=== PATIENT | male | born 1965 | race Caucasian/White ===

== ENCOUNTER 2022-02-04 19:22 | Emergency (ER) | payer OTHER, SELFPAY ==
[2022-02-04 19:32] VITALS: BP 126/84; PULSE 83; RESP 12; TEMP 36.7; O2SAT 94; BMI 28.6
--- NOTE | 2022-02-04 19:51 | TELERAD_ITS ---
Patient: LIZZ TERRELL Facility:?[facility] Patient ID:?[id number] Site Patient ID:?[id number]. Site :?[id number] Study:?XRay-Extremity Right HUMERUS-02/04/2022 8:35:57 PM Ordering Physician:Terry Elizondo Final Report: Indication: Fall, pain Technique: Right humerus three views Comparison: None. Findings: No acute fracture. Joint alignment is maintained. Soft tissues are unremarkable. Impression: No acute humeral fracture. Dictated by Goyo Mcmullen MD @ 02/04/2022 9:12:44 PM Signed by:?Goyo Mcmullen MD @02/04/2022 9:12:44 PM (Electronic Signature)
--- NOTE | 2022-02-04 19:51 | XR_ITS ---
Patient: LIZZ TERRELL Facility:?[facility] Patient ID:?[id number] Site Patient ID:?[id number]. Site :?[id number] Study:?XRay-Shoulder Right -02/04/2022 8:35:32 PM Ordering Physician:Terry Elizondo Final Report: Indication: Fall, pain Technique: Right shoulder three views Comparison: None. Findings: No acute fractures or malalignment. Glenohumeral and AC joint spaces are maintained. Partially visualized right lung is clear. Impression: No acute osseous abnormalities. Dictated by Goyo Mcmullen MD @ 02/04/2022 9:11:37 PM Signed by:?Goyo Mcmullen MD @02/04/2022 9:11:37 PM (Electronic Signature)
--- NOTE | 2022-02-04 20:21 | ED.GENADULT ---
HPI - General Adult General Chief complaint: Shoulder Injury/Pain Stated complaint: Fell down stairs, hurt right arm Time Seen by Provider: 02/04/22 19:46 History of Present Illness HPI narrative: Generally healthy 56-year-old male coming in today complaining of shoulder pain. He states that he slipped down the stairs with wet socks falling on his right arm and shoulder. Pain is located at the shoulder and the proximal upper arm. He did not hit head his head or lose consciousness. He denies any other injury. States that it hurts to move the arm. Related Data Home Medications Medication Instructions Recorded Confirmed No Known Home Medications 02/04/22 02/04/22 Allergies Allergy/AdvReac Type Severity Reaction Status Date / Time No Known Drug Allergies Allergy Verified 02/04/22 19:37 Review of Systems Narrative: Denies any other injury. PFSH PFS Social History Smoking Status: Never smoker How often do you have a drink containing alcohol: 4 or more times a week AUDIT-C Alcohol total score: 4 Non-prescribed substance use: denies use Exam Narrative: Exam Narrative: Well-nourished well-developed patient in no acute distress. Alert and oriented. Answers questions appropriately. Mood and affect are appropriate. Thoughts are goal oriented and rational. No tangential or magical thinking noted. Patient speaks in full sentences without needing to catch their breath. HEENT: Normocephalic atraumatic. Pupils are equally round reactive to light. Extraocular muscles are intact. Conjunctivae are moist without any icterus noted. Extremities: Patient has tenderness to palpation over the deltoid of the right shoulder. Can passively move the shoulder however causes him significant pain. He has normal radial pulse. No tenderness to palpation of the distal upper arm, elbow, wrist or hand. Hand facilities flight check pilot is normal and symmetric. The arm is vascularly intact. Normal shoulder contour. Skin: Well perfused without any obvious rashes. Const: Vital Signs, click to edit/add: Vital Signs - 24 hr 02/04/22 19:32 Temperature 98.0 F Pulse Rate [Pulse Oximeter] 83 Respiratory Rate 12 Blood Pressure [Le ft Upper Arm] 126/84 Pulse Oximetry 94 Course Vital Signs Vital signs: Initial Vital Signs Temperature 98.0 F 02/04/22 19:32 Temperature Source Temporal Artery Scan 02/04/22 19:32 Pulse Rate 83 02/04/22 19:32 Pulse Rhythm 02/04/22 19:32 Respiratory Rate 12 02/04/22 19:32 Blood Pressure 126/84 02/04/22 19:32 Blood Pressure Mean 98 02/04/22 19:32 Blood Pressure Position Sitting 02/04/22 19:32 Pulse Oximetry 94 02/04/22 19:32 Oxygen Delivery Method 02/04/22 19:32 Vital Signs Temperature 98.0 F 02/04/22 19:32 Pulse Rate 83 02/04/22 19:32 Respiratory Rate 12 02/04/22 19:32 Blood Pressure 126/84 02/04/22 19:32 Pulse Oximetry 94 02/04/22 19:32 Temperature 98.0 F 02/04/22 19:32 Pulse Rate 83 02/04/22 19:32 Respiratory Rate 12 02/04/22 19:32 Blood Pressure 126/84 02/04/22 19:32 Pulse Oximetry 94 02/04/22 19:32 Medical Decision Making [facility] Narrative Medical decision making narrative: 56-year-old male with shoulder injury. Shoulder contusion verses internal joint derangements such as ligamentous tear. No evidence of fractures on x-ray today. At this point will put the patient in a sling here. He is instructed to take jqth-dwa-rgnyctx pain medication however he also has hydrocodone left over from a recent oral surgery that he can take. If he is not seeing improvement over the next few days I do recommend he follow up as he potentially may need further imaging. Patient was agreeable with this and had no other questions. Imaging Data Humerus x-ray: Attestation: I have reviewed the pertinent imaging results. My impression: No acute pathology Radiologist's impression: Findings: No acute fracture. Joint alignment is maintained. Soft tissues are unremarkable. Impression: No acute humeral fracture. Shoulder x-ray: Attestation: I have reviewed the pertinent imaging results. My impression: No acute pathology Radiologist's impression: Findings: No acute fractures or malalignment. Glenohumeral and AC joint spaces are maintained. Partially visualized right lung is clear. Impression: No acute osseous abnormalities. Discharge Plan Discharge Clinical Impression: Injury of shoulder Patient Disposition: Home, Self-Care Condition: Stable Additional Instructions: Okay to use ibuprofen Tylenol as needed for discomfort. Okay to use the sling as needed. If you are not improving over the next several days follow-up with your primary care provider as you may need further imaging. Prescriptions: No Action No Known Home Medications 0RF Follow Up/Referrals: Alen Luna MD [Primary Care Provider] - Stand Alone Forms: [employer] Info Instructions
[2022-02-04 21:30] VITALS: BP 126/84; PULSE 83; RESP 12; O2SAT 94
[2022-02-04 21:43] VITALS: RESP 12; TEMP 36.7
== END 2022-02-04 21:35 | disposition home or self-care (01) ==
PROVIDERS: Emergency Provider Family Medicine; PCP Family Medicine
DX: M25.511 Pain in right shoulder (principal); W10.8XXA Fall (on) (from) other stairs and steps, initial encounter
CPT/HCPCS: 73030; 73060; 99283

== ENCOUNTER 2022-02-25 07:42 | Day surgery (SDC) | payer OTHER, SELFPAY ==
[2022-02-25] VITALS (14 sets, daily range): BP systolic 100–1441; BP diastolic 54–85; PULSE 75–95; RESP 11–20; TEMP 36.2–37.1; O2SAT 88–100; BMI 28.8
[2022-02-25] MEDS: fentaNYL 100 MCG/2 ML inj IVP (07:46)
[2022-02-25] MEDS: MIDAZOLAM HCL 1 MG/ML inj IVP (07:46)
[2022-02-25] MEDS: LACTATED RINGERS 1000 ML 1,000 ML 100 ML IV (08:00)
[2022-02-25] MEDS: SODIUM CHLORIDE 0.9 % (FLUSH) 10 ML SYRINGE IVF (08:38)
--- NOTE | 2022-02-25 09:20 | P.NB_ITS ---
Nerve Block Nerve Block Time Seen by Provider: 09:20 Date Seen: 02/25/22 Type of block requested by surgeon for post-operative analgesia: interscalene Side: right Time out performed: Yes Verification of patient name: Yes Verification of date of : Yes Site marking: site marked Name of person performing procedure: Derek Continuous monitoring Was continuous monitoring of O2 sat, B/P, bus driver/monitor, recorded every 15 minutes?: Yes Procedure Checklist: sterile prep, needles and gloves Ultrasound guided. Images saved: Yes Medications given in 5ml increments after negative aspiration: Marcaine %: 0.5 mL: 20 Needle gauge: 22 Decadron (mg): 10 Precedex (mcg): 25 Patient tolerated procedure well: Yes Block Charges Block Charge (with Pro Fee): Brachial Plexus Use of Ultrasound Machine for Block: Yes- US Guidance/pain block
--- NOTE | 2022-02-25 09:26 | SUR.PREOP ---
TIME?OUT:?918 PT/RN/MDA?VERIFICATION?OF?SURGICAL?SITE,?PROCEDURE,?AND?CONSENT OBTAINED?PRIOR?TO?INVASIVE?PROCEDURE.
--- NOTE | 2022-02-25 11:17 | W.ANESCHARGE ---
Anesthesia Charges Start Date/Time Anesthesia Start Date: 02/25/22 Anesthesia Start Time: 09:27 Stop Date/Time Anesthesia Stop Date: 02/25/22 Anesthesia Stop Time: 11:52 Summary Emergency: No
--- NOTE | 2022-02-25 11:34 | PM.ORPRC ---
Procedure Note Date of procedure: 02/25/22 Procedure: PREOPERATIVE DIAGNOSES: 1. Right shoulder rotator cuff tear. 2. Right shoulder long head of the biceps subluxation out of bicipital groove 3. Right shoulder subacromial impingement syndrome. POSTOPERATIVE DIAGNOSES: 1. Right shoulder rotator cuff nron-fhyb-zozthijmo upper border subscapularis and full-thickness entire supraspinatus with moderate retraction (crescent type tear of the supra). 2. Right shoulder long head of the biceps subluxation out of bicipital groove with high-grade partial-thickness tearing 3. Right shoulder anterior degenerative labral fraying and tearing 4. Right shoulder subacromial impingement syndrome. NAME OF OPERATION: 1. Right shoulder arthroscopic rotator cuff repair (x1 subscap; x4 anchor supra). 2. Right shoulder arthroscopic long head of biceps tenodesis 3. Right shoulder arthroscopic limited glenohumeral debridement 4. Right shoulder arthroscopic bursectomy, subacromial decompression/partial acromioplasty. SURGEON: Vincent Zepeda MD FILTER WASHER: Esvin MARTIN. Of note, a skilled assistant community manager was critical for this case to aide in patient positioning, suture manipulation, arm positioning, instrument positioning, and closure. ANESTHESIA: General plus preoperative supraclavicular block. EBL: Less than 25 mL IMPLANTS: Arthrex 4.75 mm BioComposite SwiveLock suture anchor (x4); 5.5 mm BioComposite SwiveLock suture anchor (x1) COMPLICATIONS: None evident INDICATIONS: The patient is a pleasant, 56-year-old male who has experienced right shoulder pain that has been increasing in recent time. Physical exam and imaging were consistent with a rotator cuff tear. Given their findings, as well as the weakness and pain, and inadequate response to nonoperative management, recommendation was made for surgery. FINDINGS: Exam under anesthesia revealed stable shoulder with excellent range of motion. The diagnostic arthroscopy revealed grade 2-3 chondromalacia superior hemisphere of the humeral head articular surface. The Subscapularis tendon was torn from its upper border with mild retraction. The long head of the biceps tendon was torn and high-grade partial-thickness manner through the bicipital groove and did have some mild to moderate subluxation out of the groove. The superior rotator cuff tendon was found to be torn full-thickness through the entire supraspinatus with a crescent type tear and retraction to the mid humeral head. The labrum was degeneratively frayed in the anterior and superior aspects. No loose bodies were identified within the pouch or subscapularis recess. PROCEDURE: Following a thorough discussion of risks, benefits, and alternatives, consent was obtained and the right shoulder was marked. The patient was brought to the operating room and placed supine on the operating table. Induction of anesthesia was completed after preoperative supraclavicular block was administered in preop holding. Appropriate time out was performed identifying proper patient, site, and procedure. 2 g IV Ancef was administered within 1 hour of incision preoperatively. The right upper extremity was prepped and draped in the appropriate sterile fashion using ChloraPrep prep. This was after the patient was positioned in the beach chair with their head in neutral alignment and all bony prominences well padded. The shoulder was insufflated with 20mL of normal saline via an 18g spinal needle from a posterior approach. An 11 blade skin incision allowed a blunt trochar to be inserted and diagnostic arthroscopy to be performed with the findings as noted above. An anterior portal was established with an outside in technique. This allowed the probe to be inserted and confirm the diagnostic arthroscopic findings. The shaver was then inserted and allowed debridement of the anterior and superior labrum. Additionally, the long of the biceps was released from the bicipital tuberosity for arthroscopic tenodesis. The tendon was captured in a Loop 'N tack technique and secured with the single anterior 4.75 mm BioComposite SwiveLock suture anchor in the subscapularis insertion on the lesser tuberosity just on the medial border of the bicipital groove. The remaining stump was debrided with a shaver. Following this, the upper border subscapularis was repaired after debriding the lesser tuberosity with the shaver and [place] cautery. Subscapularis was captured in horizontal mattress fashion with a fiber tape suture. The tails were brought to a single anchor in the lesser tuberosity with excellent reapproximation of the subscap tendon and good excursion/tension. Thereafter, the subacromial space was entered. Here, a complete bursectomy and partial acromioplasty/subacromial decompression was performed with a combination of radiofrequency ablator, the shaver, and a 5.5 mm bur. Further inspection of the supraspinatus and infraspinatus rotator cuff was performed. This identified the tear as noted above. The margins of the tear were debrided, and the greater tuberosity was debrided with a combination of the apollo cautery, shaver, and bur on reverse setting. After gentle decortication, a speed bridge configuration with a medial darin was engaged. 2 medial anchors were placed and the sutures were passed with a fiber link. The eyelet suture tails were then retrieved and tied and cinched down for the medial darin purpose. A tail from each of the medial row anchor FiberTapes were then brought to a lateral row anchor along with 1 of the tails from the medial darin. Excellent reapproximation of the tissue to the greater tuberosity was achieved with broad footprint compression. Prior to anchor route driver salesperson removal, the eyelet sutures were tugged on for each anchor and found that the anchor had excellent stability within the bone. The shoulder was placed through range of motion and found to be stable. The rotator cuff was re-probed and found to be stable. Instruments were removed. Excess fluid was drained, closure performed with 4-0 Monocryl and Steri-Strips. Dressings were applied. Sling was applied. The patient was awoken from anesthesia and transferred to the PACU in stable condition. A skilled assistant community manager was critical for this case to aid in patient positioning, limb positioning, skill to manipulate arthroscopic instruments and camera, suture management, patient safety, and closure. PLAN: 1. Elbow, forearm, wrist and digit range of motion as tolerated. 2. Encouraged ice. 3. Percocet for pain as needed. 4. Sling at all times except for ROM and showering. 5. Follow up with PA visit in 1-2 weeks for wound check. Initiate physical therapy following that visit for passive range of motion. Initiate active assisted range of motion at 3-4weeks. May do pendulums now.
--- NOTE | 2022-02-25 11:54 | W.ANESCHARGE ---
Anesthesia Charges Start Date/Time Anesthesia Start Date: 02/25/22 Anesthesia Start Time: 09:27 Stop Date/Time Anesthesia Stop Date: 02/25/22 Anesthesia Stop Time: 11:52 Summary Emergency: No
[2022-02-25] MEDS: LACTATED RINGERS 1000 ML 1,000 ML 35 ML IV (12:08)
== END 2022-02-25 14:23 | disposition home or self-care (01) ==
PROVIDERS: PCP Family Medicine; Visit Provider Orthopaedic Surgery Sports Medicine
PROC: (CPT 29805; principal; 2022-02-25 09:00)
DX: M75.101 Unspecified rotator cuff tear or rupture of right shoulder, not specified as traumatic (principal); M75.41 Impingement syndrome of right shoulder; S46.111A Strain of muscle, fascia and tendon of long head of biceps, right arm, initial encounter; S43.431A Superior glenoid labrum lesion of right shoulder, initial encounter
CPT/HCPCS: 29827; 29828; 29826; 29822; 01630; 64415; 76942; C1713; J0330; J1100; J2250; J2370; J2405; J2704; J3010; J3490; J7120